=== PATIENT | female | born 1990 | race Caucasian/White ===

== ENCOUNTER 2016-06-13 14:53 | Emergency (ER) | payer MEDICAID ==
--- NOTE | 2016-06-17 23:16 | ER ---
ADMIT: 06/13/2016 RM/LOC: ER [facility] MR#: [id number] [address] [address] HUMZA MCDANIEL Sarita [address] [place] [address] Emergency Room Report SEX: F AGE: 25 : 1990 DATE: 06/13/2016 CHIEF COMPLAINT: Back pain. HISTORY OF PRESENT ILLNESS: This is a pleasant 25-year-old female, who presents to the ER for evaluation of back pain. The patient states she awoke this morning with some pain just below her right scapula. The patient states this pain kind of comes and goes, exacerbated when she lays flat, moves, coughs, or takes a deep breath. She says the pain is relatively minimal as long as she stays in the upright position and still. The patient denies any fevers, chills, change in bowels, loss of appetite, chest pain or difficulty breathing. She does admit to some nausea. She has a history of peptic ulcer disease. She states she no longer takes medications for this. She also has a history of muscular dystrophy. The patient also complains of "bumps" in both of her breasts extending into her axilla for the past year. She states she also has some associated discharge from her nipples, which she describes as clear to straw-colored. She is unaware if this bumps get with menarche. COURSE IN THE EMERGENCY ROOM: Patient was seen and examined. This is an afebrile, nontoxic female. PHYSICAL EXAM: Shows no pain to palpation of the right periscapular area, where she indicates she has pain. I am unable to reproduce this pain. Palpation of her abdomen does show some tenderness to the right lower quadrant. Exam is otherwise unremarkable. I did complete a breast evaluation with the RN in the room. No evidence of any fixed masses, does have some irregularities throughout bilateral breasts consistent with suspected fibroadenomatous changes. No nipple discharge noted on exam. LABORATORY DATA: I did get some laboratory studies on her. CMP shows sodium 141, potassium 3.4, chloride 108, CO2 of 27, creatinine was 0.3. Liver enzymes within normal limits. Urine is somewhat contaminated sample, but not suspicious for infection. CBC with diff shows white count 7.3, hemoglobin 12.8, hematocrit 38, platelets 235. There is a prolactin pending at this time. IMPRESSION: 1. Likely exacerbation of peptic ulcer disease. ADMIT: 06/13/2016 RM/LOC: [facility] MR#: [id number] [address] [address] HUMZA MCDANIEL [address] [place] [address] Emergency Room Report SEX: F AGE: 25 : 1990 2. Suspected fibrocystic breast changes. DISPOSITION: I did provide the patient with a script for omeprazole 40 mg p.o. daily for 4 weeks to see if there is resolution of some of her symptoms given some of her epigastric pain radiating to the back. She is to include fluids as tolerated. Continue her home medications as prescribed. She is to return with any worsening signs or symptoms. I did have her follow up with Dr. Ruiz with the concerns about her breasts. All her questions were sought and answered to the best of my ability and to the patient's satisfaction, she was discharged in stable condition. KAILA Dawkins / Gregg Moran MD / shellyl JOB #: [id number] CC: Gregg Moran MD, Attending Physician UNKNOWN, Family Physician
== END 2016-06-13 18:50 | disposition home or self-care (01) ==
LOC: ER 14:53
DX: K27.3 Acute peptic ulcer, site unspecified, without hemorrhage or perforation (principal); N60.12 Diffuse cystic mastopathy of left breast; N60.11 Diffuse cystic mastopathy of right breast; Z91.040 Latex allergy status; Z79.899 Other long term (current) drug therapy

== ENCOUNTER 2016-07-14 14:16 | Emergency (ER) | payer MEDICAID ==
--- NOTE | 2016-07-15 13:17 | ER ---
ADMIT: 07/14/2016 RM/LOC: ER [facility] MR#: [id number] [address] HUMZA MCDANIEL Sarita [address] [place] [address] Emergency Room Report SEX: F AGE: 26 : 1990 DATE: 07/14/2016 A 26-year-old female, comes to the Emergency Department with complaints of sore throat over the past several days. She said it is not getting better. She said "I just need a real strong antibiotic." See T-sheet for history and physical. Rapid strep was negative. The patient is diagnosed with pharyngitis. Discharged and instructed to use something like Magic Mouthwash for symptomatic relief, Motrin, Tylenol, and stop smoking. Ok Williamson MD/ michelle JOB #: [id number] CC: Ok Williamson MD, Attending Physician Franco Valle MD, Family Physician
== END 2016-07-14 15:16 | disposition home or self-care (01) ==
LOC: ER 14:16
DX: J02.9 Acute pharyngitis, unspecified (principal); F17.210 Nicotine dependence, cigarettes, uncomplicated; Z88.0 Allergy status to penicillin; Z91.040 Latex allergy status; Z98.890 Other specified postprocedural states